=== PATIENT | female | born 1995 | race Caucasian/White ===

== ENCOUNTER 2017-01-13 14:00 | Outpatient (CLI) | payer OTHER ==
[2017-01-13 15:06] LABS: BASOPHILS % (AUTO) 0.3 %; EOSINOPHILS # (AUTO) 0.1 10^3/uL (0.0-0.7); EOSINOPHILS % (AUTO) 0.6 %; HCT - HEMATOCRIT 34.2 % (37.0-47.0); HGB - HEMOGLOBIN 11.9 g/dL (12.0-16.0); LYMPHOCYTES # (AUTO) 1.6 10^3/uL (1.5-3.5); LYMPHOCYTES % (AUTO) 15.9 %; MEAN CORPUSCULAR HEMOGLOBIN 30.5 pg (27.0-31.0); MEAN CORPUSCULAR HGB CONC 34.8 g/dL (32.0-36.0); MEAN CORPUSCULAR VOLUME 87.6 fL (81.0-99.0); MEAN PLATELET VOLUME 7.6 fL (7.9-10.8); MONOCYTES # (AUTO) 0.5 10^3/uL (0.0-1.0); NEUTROPHILS # (AUTO) 7.9 10^3/uL (1.5-6.6); NEUTROPHILS % (AUTO) 78.2 %; RED CELL DISTRIBUTION WIDTH 12.8 % (12.0-15.0); UNCORRECTED WHITE BLOOD COUNT 10.1 x10^3/uL; WHITE BLOOD COUNT 10.1 x10^3/uL (4.8-10.8)
[2017-01-13 15:18] LABS: BILIRUBIN,URINE NEGATIVE (NEGATIVE); PH,URINE 6.5 PH (5.0-7.5)
[2017-01-13 15:19] LABS: UA CHARGE (STRIP ONLY) YES; UR CULTURE IF IND NOT INDICATED
[2017-01-13] MEDS ORDERED: BETAMETHASONE 30 MG/5 ML VIAL ONE (15:28)
[2017-01-13] MEDS: BETAMETHASONE 30 MG/5 ML VIAL IM ONE ×2 (15:48→18:37)
[2017-01-13] MEDS ORDERED: SODIUM CHLORIDE FLUSH 0.9% 10 ML SYRINGE IVP ONE (16:07)
[2017-01-13] MEDS ORDERED: LACTATED RINGERS 500 ML IV ONE (17:00)
[2017-01-13] MEDS ORDERED: LACTATED RINGERS 1,000 ML IV SCH (17:00)
--- NOTE | 2017-01-13 17:03 | Ultrasound Report ---
OB FOLLOWUP: 01/13/2017 CLINICAL INDICATION: History of abruption. TECHNIQUE: Real-time scanning was performed with sales representative gas service static images obtained. LAST MENSTRUAL PERIOD 07/31/2016 Clinical Age 23 weeks 5 days US Age 23 weeks 3 days EFW Hadlock 569 g EFW% Hadlock 21 % Heart Rate 148 bpm EDC 05/07/2017 US EDC 05/09/2017 BPD Hadlock 23 weeks 5 days; means mm 57.9 HC Hadlock 23 weeks 2 days; means mm 212.4 AC Hadlock 22 weeks 4 days; means mm 176.2 FL Hadlock 23 weeks 6 days; means mm 42.5 Presentation cephalic Placental Location posterior Cervical Length 3.4 cm Amniotic Fluid -- FINDINGS: There is a single viable intrauterine gestation, in cephalic presentation. heart rate is 148 BPM. Amniotic fluid volume appears unremarkable. The placenta is posterior, with a retroplacental collection, measuring up to 10 cm in length, compatible with abruption. By size, the fetus measures 23.5 weeks (23.7 weeks by initial sonogram). No free fluid or adnexal lesion is seen. IMPRESSION: RETROPLACENTAL COLLECTION, COMPATIBLE WITH ABRUPTION. CRITICAL RESULT: RESULTS DISCUSSED WITH DR. COSTELLO ON 01/13/2017 AT 1545 HOURS. [facility]
[2017-01-13 17:35] VITALS: BP 100/76
--- NOTE | 2017-01-13 17:48 | HISTORY & PHYSICAL EXAMINATION ---
DATE OF ADMISSION: 01/13/2017 DATE OF TRANSPORT: 01/13/2017 GRADE 1 PLACENTAL ABURPTION 24 WK 0 D GESTATION HX OF VAGINAL BLEEDING The patient is a 21-year-old, , 4 para 0-0-3-0, at 24 weeks and 0 days by early dating ultrasound. EDC is May 05, 2017. She reports vaginal bleeding last night, passing a plum-size clot that prompted her to be evaluated at [facility]. 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 At work she passed a grape-size clot and experienced increasing abdominal/uterine pain that radiated into her back - Grade 7/10 without uterine contractions. She was instructed by the [facility] to report immediately to [facility] for evaluation. Patient does not feel faint, orthostatic dizziness, or continued vaginal bleeding. She is very concerned about abdominal tenderness and finds wearing tight clothing or the uterine monitor to be unusually uncomfortable. She has no fevers, chills, recent illness, or history of symptoms suggestive of UTI. She does report a loss of consciousness 3 weeks ago in which she "passed out" and woke up alone. She did not report abdominal trauma. She was evaluated at [facility] and thought to have a hypoglycemia. She has had 3 prior losses , one at 14-16 weeks. She cannot recall any thrombophilia, genetic or uterine cavity evaluation. In her records there is a note of RPL being negative, which may indicate there was a thrombophilia panel at one time. A hard copy of this lab is not available. She used supplemental progesterone in early . BASIC LABS: Blood type A positive, antibody screen negative, rubella immune, RPR negative, HIV negative, hepatitis B surface antigen negative. Urine culture negative. GC and Chlamydia screens negative. Pap smear normal. Varicella titer immune. Quad screen negative. Cystic fibrosis screen negative. Prior pregnancies resulted in embryonic or early wastage. In 2012 a 14- week spontaneous loss in [place], [place]. In 2014 a 6-week loss in [place], [place]. And in 2016 an 8-week loss at [facility]. PAST MEDICAL HISTORY: Patient denies chronic disease history and is active young adult. Patient had a distant history of Chlamydia but recent tests were normal. She does have a cat at home and had contact with the litter box. She is status post Gardasil injection. ALLERGIES: NO KNOWN DRUG ALLERGIES. MEDICATIONS 1. vitamins,. FAMILY HISTORY: No genetic disease history or chromosomal abnormalities. CAD, type 2 diabetes, and maternal breast cancer. REVIEW OF SYSTEMS CONSTITUTIONAL: Anxious, fatigued. HEENT: Negative. Reports normal thyroid panel prior to . PULMONARY: Negative. CARDIOVASCULAR: Negative. GASTROINTESTINAL: Negative. GENITOURINARY: Reference HPI. NEUROLOGIC: Negative. DERMATOLOGIC: Negative. MUSCULOSKELETAL: Negative. PHYSICAL EXAMINATION GENERAL: Patient lying anxiously in bed in no physical distress. Alert, cooperative. VITAL SIGNS: 36.8; 69P; 121/73 HEENT: Supple neck. Moist mucous membranes. No thyromegaly. LUNGS: Clear. CARDIAC: Exam regular, no murmur, no gallop. ABDOMEN: No hepatosplenomegaly, no CVA tenderness, no abdominal visceral tenderness. UTERUS: Uterus is appropriate for size but has 2/3 tenderness particularly on the left in the lower segment of the uterus; this corresponds to area of a posterior placental implantation. EXTERNAL GENITALIA: No lesions seen. VAGINA: creamy nonfoul discharge; minor spotting No elvis bleeding; fern neg Cervix over 3.5 cm on bedside ultrasound, and no funneling observed. long & closed NEUROLOGIC: No sensory or motor defects evident. SKIN: Decorative tattoos. No rash or skin breakage, or suggestive bruising. Non- edematous. LABORATORIES: Blood type A positive, antibody screen negative. Two units placed on hold. Urine dark, no indication of infection. Hemoglobin 11.9 ( baseline 12.1), platelets 295, white count 10.1 with left shift. ASSESSMENT: Patient has clinical symptoms suggestive of abruption and Ultrasound confirms abruption with retroplacental clot and Doppler flow consistent with bleeding. No current significant vaginal bleeding. She is hemodynamically stable at the current time, and the fetus appears to be normal with a baseline of 155 to 160 and adequate variability for . There is no bradycardia or evidence of current compromise, though risk is recognized. Patient's is viable at 24 weeks and she wishes to take all steps possible to ensure the best outcome. We discussed the problems associated with 24-week and survival can be low with a 85% mortality at best, with 50 % of the survivors suffering some sequelae. We discussed transport, the risks of transport. Patient was given time to process this information, and all questions were answered. 1. Two large-bore IV lines and NPO 2. 2 PRBCs on hold. 3. OR crew and Anesthesia called to the building as backup. 4, 12.5 mg Betamethasone IM 5 Coordination of helicopter transport to [facility]. Discussed case with Dr. Gabi Casey, OB hospitalist economic development manager, and she is willing to accept transport at this time. Prior to transport we will ensure that heart tones are stable. JOB #: [id number] EXT JOB #:[id number] NANCY
== END 2017-01-13 18:10 | disposition short-term general hospital (02) ==
LOC: WFO 14:00 → OB 14:03 → WFO 18:10
PROVIDERS: ATTEND Obstetrics & Gynecology
DX: O45.92 Premature separation of placenta, unspecified, second trimester (principal); Z3A.24 24 weeks gestation of pregnancy; Z86.19 Personal history of other infectious and parasitic diseases
CPT/HCPCS: 36415; 76816; 80306; 81001; 81003; 82731; 85025; 86850; 86900; 86901; 86920; 87081; 87086; 87491; 87797; 96372; 99214

== ENCOUNTER 2018-07-18 11:35 | Emergency (ER) | payer OTHER ==
--- NOTE | 2018-07-18 12:09 | ED Physician Documentation ---
PD HPI SKIN - Stated complaint Stated Complaint: SHORTNESS OF BREATH, RASH, NUMBNESS R ARM - Chief complaint Chief Complaint: General - History obtained from History obtained from: Patient - History of Present Illness Timing - onset: Today Timing - duration: Hours Timing - details: Gradual onset (onset of rash with some swelling of hands this morning, more to right hand. feeling of itching in armpits and on arms. Had feeling of weakness right arm and also some dyspnea feeling. Does not have swelling of throat per se.) Location: Bodywide (most notable on hands/arms, axillary and groin areas.) Quality / character: Itchy, Burning Review of Systems Constitutional: denies: Fever, Chills Nose: denies: Rhinorrhea / runny nose, Congestion Throat: denies: Sore throat Cardiac: reports: Chest pain / pressure (right anterior chest/shoulder area today, worse with breathing.) Respiratory: reports: Dyspnea. denies: Cough GI: denies: Abdominal Pain, Nausea, Vomiting, Diarrhea Skin: reports: Rash Neurologic: denies: Generalized weakness, Focal weakness, Near syncope, Confused, Altered mental status, Headache PD PAST MEDICAL HISTORY - Past Medical History Cardiovascular: None Respiratory: None Neuro: None WIDE AREA NETWORK ENGINEER: Miscarriage(s) - Present Medications Home Medications: Ambulatory Orders Medication Instructions Recorded Confirmed Pnv95/Iron Fum/Folic Acid 1 each PO 03/31/16 [ Caplet] Cetirizine [ZyrTEC] 10 mg PO DAILY #15 tablet 07/18/18 Dexamethasone [Decadron] 4 mg PO DAILY #5 tablet 07/18/18 Naproxen 375 mg PO BID #20 tablet 07/18/18 diphenhydrAMINE [Benadryl] 25 mg PO Q4-6H PRN #30 capsule 07/18/18 - Allergies Allergies/Adverse Reactions: Allergies Allergy/AdvReac Type Severity Reaction Status Date / Time giovanna Allergy Edema Verified 07/18/18 11:46 - Social History Does the pt smoke?: No Smoking Status: Never smoker Does the pt drink ETOH?: No Does the pt have substance abuse?: No - Immunizations Immunizations are current?: Yes PD ED PE NORMAL - Vitals Vital signs reviewed: Yes - General General: Alert and oriented X 3, No acute distress, Well developed/nourished - HEENT HEENT: Pharynx benign - Neck Neck: Supple, no meningeal sign, No adenopathy - Cardiac Cardiac: RRR, No murmur - Respiratory Respiratory: Clear bilaterally Results - Vitals Vitals: Oxygen O2 Source Room air - Labs Labs: Laboratory Tests 07/18/18 07/18/18 07/18/18 11:59 11:59 12:00 WBC 7.4 RBC 4.41 Hgb 13.3 Hct 37.9 MCV 85.8 MCH 30.1 MCHC 35.0 RDW 12.8 Plt Count 360 MPV 7.6 L Neut # (Auto) 4.7 Lymph # (Auto) 2.1 Cecil # (Auto) 0.4 Eos # (Auto) 0.1 Baso # (Auto) 0.0 Absolute Nucleated RBC 0.00 Nucleated RBC % 0.0 Sodium Potassium Chloride Carbon Dioxide Anion Gap BUN Creatinine Estimated GFR (MDRD) Glucose Calcium Total Bilirubin AST ALT Alkaline Phosphatase Total Protein Albumin Globulin Albumin/Globulin Ratio Lipase Urine Color YELLOW Urine Clarity CLEAR Urine pH 5.5 Ur Specific [place] 1.025 1.025 Urine Protein NEGATIVE Urine Glucose (UA) NEGATIVE Urine Ketones NEGATIVE Urine Occult Blood NEGATIVE Urine Nitrite NEGATIVE Urine Bilirubin NEGATIVE Urine Urobilinogen 0.2 (NORMAL) Ur Leukocyte Esterase NEGATIVE Ur Microscopic Review NOT INDICATED Urine Culture Comments NOT INDICATED Urine HCG, Qual NEGATIVE 07/18/18 12:00 WBC RBC Hgb Hct MCV MCH MCHC RDW Plt Count MPV Neut # (Auto) Lymph # (Auto) Cecil # (Auto) Eos # (Auto) Baso # (Auto) Absolute Nucleated RBC Nucleated RBC % Sodium 134 L Potassium 3.7 Chloride 103 Carbon Dioxide 24 Anion Gap 7.0 BUN 18 Creatinine 0.6 Estimated GFR (MDRD) 124 Glucose 109 H Calcium 9.6 Total Bilirubin 1.0 AST 15 ALT 12 Alkaline Phosphatase 46 Total Protein 7.9 Albumin 4.8 Globulin 3.1 Albumin/Globulin Ratio 1.5 Lipase 29 Urine Color Urine Clarity Urine pH Ur Specific [place] Urine Protein Urine Glucose (UA) Urine Ketones Urine Occult Blood Urine Nitrite Urine Bilirubin Urine Urobilinogen Ur Leukocyte Esterase Ur Microscopic Review Urine Culture Comments Urine HCG, Qual PD MEDICAL DECISION MAKING - ED course Complexity details: considered differential (has blotchy, itchy red rash c/w allergic reaction. feeling of dyspnea without notable oral edema. ), d/w patient Departure - Departure Disposition: 01 Home, Self Care Clinical Impression: Pleuritic chest pain Allergic reaction caused by a drug Qualifiers: Encounter type: initial encounter Qualified Code(s): T78.40XA - Allergy, unspecified, initial encounter Condition: Stable Record reviewed to determine appropriate education?: Yes Instructions: ED Drug React Allergic, ED Chest Pain Pleurisy Follow-Up: REYMUNDO MEJIAS PA-C [Primary Care Provider] - Prescriptions: Cetirizine [ZyrTEC] 10 mg PO DAILY #15 tablet Dexamethasone [Decadron] 4 mg PO DAILY #5 tablet diphenhydrAMINE [Benadryl] 25 mg PO Q4-6H PRN #30 capsule PRN Reason: Itching Naproxen 375 mg PO BID #20 tablet Comments: For now would presume the allergic reaction is to the control pills. Stop those for now. Use Benadryl every 4-6 hours if needed for itchiness. Cetirizine daily antihistamine for the next week. Decadron steroid daily for the next 5 days. Naproxen twice daily for the next several days for the chest pain.Recheck if not improving through the course of the day today into tomorrow. Follow-up with your primary care regarding changing of the medication. You will want to be completely cleared of this reaction and off medicines and doing well before you start any new one so that he can distinguish if you have a separate reaction to the next oral contraceptive. Alternatively they could do some allergy testing to distinguish what part of the medication you might be allergic to. Sometimes it is just the coloring of the tablet. Discharge Date/Time: 07/18/18 14:30
[2018-07-18 12:20] LABS: BASOPHILS % (AUTO) 0.3 %; EOSINOPHILS # (AUTO) 0.1 10^3/uL (0.0-0.7); EOSINOPHILS % (AUTO) 1.3 %; HGB - HEMOGLOBIN 13.3 g/dL (12.0-16.0); LYMPHOCYTES # (AUTO) 2.1 10^3/uL (1.5-3.5); MEAN CORPUSCULAR HEMOGLOBIN 30.1 pg (27.0-31.0); MEAN CORPUSCULAR VOLUME 85.8 fL (81.0-99.0); MEAN PLATELET VOLUME 7.6 fL (7.9-10.8); MONOCYTES # (AUTO) 0.4 10^3/uL (0.0-1.0); MONOCYTES % (AUTO) 5.8 %; NEUTROPHILS # (AUTO) 4.7 10^3/uL (1.5-6.6); NEUTROPHILS % (AUTO) 63.6 %; PLT - PLATELET COUNT 360 10^3/uL (130-450); RED BLOOD COUNT 4.41 10^6/uL (4.20-5.40); RED CELL DISTRIBUTION WIDTH 12.8 % (12.0-15.0); WHITE BLOOD COUNT 7.4 x10^3/uL (4.8-10.8)
[2018-07-18 12:23] LABS: BILIRUBIN,URINE NEGATIVE (NEGATIVE); GLUCOSE, URINE (UA) NEGATIVE (NEGATIVE); KETONES,URINE (UA) NEGATIVE (NEGATIVE); LEUKOCYTE ESTERASE, URINE NEGATIVE (NEGATIVE); NITRITE,URINE NEGATIVE (NEGATIVE); OCCULT BLOOD,URINE NEGATIVE (NEGATIVE); PH,URINE 5.5 PH (5.0-7.5); PROTEIN,URINE NEGATIVE (NEGATIVE); UROBILINOGEN,URINE 0.2 (NORMAL) E.U./dL (NORMAL)
[2018-07-18 12:25] LABS: CLARITY,URINE CLEAR (CLEAR)
[2018-07-18 12:26] LABS: HCG UR QUAL NEGATIVE
[2018-07-18 12:36] LABS: ALBUMIN 4.8 g/dL (3.2-5.5); ALBUMIN/GLOBULIN RATIO 1.5 (1.0-2.2); CALCIUM 9.6 mg/dL (8.5-10.3); CREATININE 0.6 mg/dL (0.4-1.0); TOTAL PROTEIN 7.9 g/dL (6.7-8.2)
[2018-07-18] MEDS ORDERED: CETIRIZINE 10 MG TABLET PO STA (12:37)
[2018-07-18] MEDS ORDERED: DEXAMETHASONE 10 MG/ML VIAL IVP STA (12:37)
[2018-07-18] MEDS ORDERED: KETOROLAC 30 MG/ML VIAL IVP STA (12:37)
[2018-07-18] MEDS ORDERED: diphenhydrAMINE INJ 50 MG/ML VIAL IVP STA (12:37)
--- NOTE | 2018-07-18 12:55 | XRAY Report ---
Reason: SOB Procedure Date: 07/18/2018 Accession Number: [id number] / [id number] Procedure: XR - Chest 1 View X-Ray CPT Code: 78584 FULL RESULT: EXAM: CHEST RADIOGRAPHY EXAM DATE: 07/18/2018 12:34 PM. CLINICAL HISTORY: SOB. COMPARISON: None. TECHNIQUE: 1 view. FINDINGS: Lungs/Pleura: No focal opacities evident. No pleural effusion. No pneumothorax. Mediastinum: Within exam limitations, the cardiomediastinal contour is normal. IMPRESSION: No evidence of acute thoracic process RADIA
[2018-07-18 15:02] VITALS: BP 127/78
== END 2018-07-18 14:30 | disposition home or self-care (01) ==
LOC: ED 11:35
DX: R07.81 Pleurodynia (principal); T78.40XA Allergy, unspecified, initial encounter
CPT/HCPCS: 36415; 71045; 80053; 81003; 81025; 83690; 85025; 93005; 96374; 99283; A9270; J1200; 81001; 87086